=== PATIENT | male | born 1965 | race Caucasian/White ===

== ENCOUNTER → 2016-06-02 | Outpatient (REF) | payer OTHER ==
[2016-06-02 14:02] LABS: PERCENT SATURATION 20.4 % (19.7-37.4)
== END ==
LOC: M LAB REF 12:53
PROVIDERS: ATTEND Internal Medicine Medical Oncology
DX: E83.119 Hemochromatosis, unspecified (principal)

== ENCOUNTER → 2016-09-27 | Outpatient (REF) | payer OTHER ==
[2016-09-27 19:41] LABS: PERCENT SATURATION 17.1 % (19.7-37.4)
== END ==
LOC: M LAB REF 17:26
PROVIDERS: ATTEND Internal Medicine Medical Oncology
DX: E83.119 Hemochromatosis, unspecified (principal)

== ENCOUNTER → 2016-09-29 | Outpatient (REF) | payer OTHER | LOC: M LAB REF 12:36 | PROVIDERS: ATTEND Internal Medicine Medical Oncology | DX: E83.119 Hemochromatosis, unspecified (principal) ==

== ENCOUNTER → 2016-10-19 | Outpatient (CLI) | payer OTHER ==
--- NOTE | 2016-10-19 12:23 | REP ---
MRI OF THE LIVER WITH AND WITHOUT CONTRAST: TECHNIQUE: Multiple axial and coronal sequences obtained prior to and following the intravenous administration of 19 mL of gadolinium. I do not see MR evidence of significant fat or iron deposition in the liver. The liver is normal in size. No liver lesion is seen. The spleen is enlarged with a length of approximately 19 cm. No intrinsic splenic abnormality is seen. The adrenals, pancreas and visualized kidneys are unremarkable. There is no abdominal aortic aneurysm down to the level of the renal arteries. No adenopathy or free fluid is seen in the visualized abdomen. IMPRESSION: No significant iron deposition in the liver. Moderate splenomegaly. Signed by Jaskaran Sheridan MD 10/19/2016 03:56 P
== END ==
LOC: M RAD 10:19
PROVIDERS: ATTEND Internal Medicine Medical Oncology
DX: E83.119 Hemochromatosis, unspecified (principal); R16.1 Splenomegaly, not elsewhere classified
CPT/HCPCS: 74183; A9576

== ENCOUNTER → 2016-11-03 | Outpatient (CLI) | payer OTHER ==
[~2016-11-03] MED LIST: GASTROGRAFIN SOLUTION 30ML (Q9963) As Ordered ONE; ISOVUE-370 76% 100ML VIAL (Q9967) As Ordered ONE
--- NOTE | 2016-11-03 18:14 | REP ---
REASON FOR EXAM: History of hemachromatosis. COMPARISON: Chest CT 07/12/2015 which was normal. The mediastinal and pulmonary [place] are unchanged. There is no mass or adenopathy. There are no pleural or pericardial effusions. The osseous structures are stable and intact. Evaluation of the lung field showed no significant changes from the prior exam. Minimal bibasilar fibrotic annular subsegmental atelectatic changes are noted status quo. There has been no interim development of a significant nodule, mass, or abnormal opacity. IMPRESSION: Stable CT examination of the chest with findings as described above. Signed by Anurag Carmona DO 11/03/2016 07:52 P
--- NOTE | 2016-11-03 18:34 | REP ---
HISTORY: Hemochromatosis. COMPARISON: 06/29/2015 The prior exam showed diverticulosis. The precontrast enhanced portion of the examination shows subtle diffuse decreased density in the posterior segment of the right lobe of the liver. There are no precontrast images to compare to the latest prior, however, an older exam of 09/21/2008 showed no similar finding. Surgical clips are seen in the gallbladder fossa from previous cholecystectomy. There are no nephroliths. The contrast enhanced portion of the examination shows no evidence of an enhancing hepatic lesion. Hepatic density is within normal limits with the exception of slight decreased density persisting in the posterior segment of the right lobe of the liver representing a change from the prior exams. The spleen is somewhat globular in shape and having a maximal dimension of 19.5 cm. This has increased in size by 2 cm compared to the latest prior. The pancreas, adrenal glands and kidneys are unchanged remaining within normal limits. The abdominal aorta and paraaortic regions are essentially unchanged and again seen to be within normal limits. Small shotty lymph nodes are noted. There is no free fluid or free air in the abdomen. The intraabdominal bowel loops and their mesenteries are unchanged. There is mild colonic diverticulosis, status quo. This is particular to the distal descending colon. There is no evidence of an intraabdominal mass. CT PELVIS: There is no mass or adenopathy. There is mild sigmoid colon diverticulosis. There is no free fluid or free air. Bone window technique throughout the exam shows no significant change in the appearance of the osseous structures. IMPRESSION: 1. Geographic fatty infiltration of the liver suspected as described above. 2. There is splenomegaly as described above. 3. There is no evidence of acute intraabdominal or intrapelvic disease with other findings as described above. Signed by Anurag Carmona DO 11/03/2016 07:52 P
== END ==
LOC: M RAD 15:43
PROVIDERS: ATTEND Internal Medicine Medical Oncology
DX: R16.1 Splenomegaly, not elsewhere classified (principal); K76.0 Fatty (change of) liver, not elsewhere classified
CPT/HCPCS: 71260; 74178; Q9963; Q9967

== ENCOUNTER → 2016-11-10 | Outpatient (REF) | payer OTHER | LOC: M LAB REF 13:49 | PROVIDERS: ATTEND Internal Medicine Medical Oncology | DX: E83.119 Hemochromatosis, unspecified (principal) ==

== ENCOUNTER → 2017-01-12 | Outpatient (REF) | payer OTHER ==
[2017-01-12 14:39] LABS: PERCENT SATURATION 18.9 % (19.7-50.0)
== END ==
LOC: M LAB REF 12:33
PROVIDERS: ATTEND Internal Medicine Medical Oncology
DX: E83.119 Hemochromatosis, unspecified (principal)

== ENCOUNTER → 2017-11-09 | Outpatient (CLI) | payer OTHER ==
[~2017-11-09] MED LIST changes: -GASTROGRAFIN SOLUTION 30ML (Q9963) As Ordered ONE; +ISOVUE-370 76% 100ML VIAL (Q9967) As Ordered; -ISOVUE-370 76% 100ML VIAL (Q9967) As Ordered ONE
== END ==
LOC: M RAD 15:36
DX: R22.1 Localized swelling, mass and lump, neck (principal)
CPT/HCPCS: Q9967

== ENCOUNTER → 2017-11-13 | Outpatient (CLI) | payer OTHER | LOC: M RAD 07:01 | DX: K74.69 Other cirrhosis of liver (principal); Z90.49 Acquired absence of other specified parts of digestive tract; R16.1 Splenomegaly, not elsewhere classified | CPT/HCPCS: 76700 ==

== ENCOUNTER → 2018-05-15 | Outpatient (CLI) | payer OTHER ==
--- NOTE | 2018-05-15 19:56 | REP ---
Clinical: Cirrhosis. Comparison: 11/13/2017 Technique: Sheridan scale ultrasound using curved array transducer. Findings: The liver demonstrates coarsened echogenic parenchyma consistent with underlying hepatocellular disease/cirrhosis. No focal hepatic lesion identified. Pancreas is incompletely evaluated due to interposed bowel gas but visualized portions appear normal. The patient is known to be status post cholecystectomy. No biliary ductal dilatation is appreciated, and the common bile duct measures 3.5 mm diameter. The right kidney is normal in reniform shape without hydronephrosis and measures 12.2 x 6.3 x 6.2 cm. No ascites. Visualized portions of the abdominal aorta normal. Impression: Hepatocellular disease consistent with cirrhosis. No focal hepatic lesion. Evidence for prior cholecystectomy. Electronically Signed by Timi Frias MD 05/15/2018 07:48 P
== END ==
LOC: M RAD 08:38
PROVIDERS: ATTEND Internal Medicine Gastroenterology
DX: K74.60 Unspecified cirrhosis of liver (principal)

== ENCOUNTER → 2018-10-09 | Outpatient (CLI) | payer OTHER ==
--- NOTE | 2018-10-09 10:06 | REP ---
Clinical: Cirrhosis. Technique: Real time oliveira scale and color evaluation using curved array transducer. Doppler evaluation of the portal vein performed. Comparison: 11/13/2017 Findings: The liver demonstrates a coarsened echotexture with decreased through transmission and subtle nodular contour. A 9 x 7 x 5 mm hypoechoic focus is identified with in the medial left lobe which is nonspecific, and cannot be classified as simple cyst. Doppler interrogation of the main portal vein measures 14 mm diameter and demonstrates normal flow velocity, wave pattern and direction at 25.6 cm/sec. The Pancreas is incompletely evaluated due to interposed bowel gas but visualized portions appear grossly normal. Evidence of prior cholecystectomy. No biliary ductal dilatation is appreciated and the common bile duct measures 6.4 mm diameter. Right kidney is normal in reniform shape without hydronephrosis and measures 10.7 x 5.7 x 6.6 cm. No ascites. Impression: 1. Hepatic findings consistent with cirrhosis as well as sub centimeter hypoechoic lesion which cannot be classified as benign simple cyst and which was not identified on CT dated 11/03/2016. Consider 6-9 month repeat ultrasound as initial followup evaluation. Electronically Signed by Timi Frias MD 10/09/2018 09:57 A
== END ==
LOC: M RAD 08:39
PROVIDERS: ATTEND Internal Medicine Gastroenterology
DX: K74.69 Other cirrhosis of liver (principal); R16.1 Splenomegaly, not elsewhere classified; Z14.8 Genetic carrier of other disease

== ENCOUNTER → 2025-03-10 | Outpatient (CLI) | payer OTHER ==
[~2025-03-10] MED LIST changes: +IRBE75TA11 PO; -ISOVUE-370 76% 100ML VIAL (Q9967) As Ordered; +METF-838; +PROHANCE 279.3MG/ML 15ML VIAL ONE; +PROHANCE 279.3MG/ML 5ML VIAL ONE; +TEST200I14 IM
== END ==
LOC: M PLAIMG 15:47
PROVIDERS: ATTEND Pain Medicine Interventional Pain Medicine
DX: M96.1 Postlaminectomy syndrome, not elsewhere classified (principal)